=== PATIENT | male | born 1935 ===

== ENCOUNTER 2018-03-25 11:30 | Outpatient (CLI) | payer OTHER ==
[~2018-03-25] VITALS: Ht 167.6 cm; Wt 72.1 kg
== END 2018-03-25 11:45 | disposition home or self-care (01) ==
LOC: OFIC 805 11:30
DX: H61.23 Impacted cerumen, bilateral (principal); R42 Dizziness and giddiness

== ENCOUNTER 2018-04-29 14:15 | Outpatient (CLI) | payer OTHER ==
[~2018-04-29] VITALS: Ht 152.4 cm; Wt 72.1 kg
== END 2018-04-29 14:30 | disposition home or self-care (01) ==
LOC: OFIC 805 14:15
DX: R42 Dizziness and giddiness (principal); H90.3 Sensorineural hearing loss, bilateral